=== PATIENT | female | born 1945 | race Caucasian/White ===

== ENCOUNTER 2019-08-11 09:47 | Day surgery (SDC) ==
--- NOTE | 2019-08-05 08:18 | EKG Report ---
Test Performed on : 08/05/2019 07:58:07 AM Test Reason : PAT Blood Pressure : / mmHG Vent. Rate : 098 BPM Atrial Rate : 098 BPM P-R Int : 182 ms QRS Dur : 088 ms QT Int : 378 ms P-R-T Axes : 063 066 072 degrees QTc Int : 482 ms Normal sinus rhythm. Possible Left atrial enlargement Borderline ECG When compared with ECG of 11-JUL-2010 23:09, No significant change was found Confirmed by Bernardino GIBBONS, Rg Britton ([id number]) on 08/06/2019 8:58:44 AM
[2019-08-05 08:26] LABS: URINE SOURCE CLEAN CATCH
[2019-08-05 08:43] LABS: BASO# 0.05 X1000 (0.0-0.2); BASO% 0.9 % (0.0-0.8); EOS# 0.46 X1000 (0.0-0.7); EOS% 8.4 % (0.0-10.0); HEMATOCRIT 42.8 % (37.0-47.0); HEMOGLOBIN 13.9 g/dL (12.0-16.0); LYMPH# 1.04 X1000 (1.2-3.4); LYMPH% 18.9 % (20.5-51.1); MCH 30.5 PG (27-31); MCHC 32.5 g/dL (33-37); MCV 94.1 FL (81-99); MONO# 0.85 X1000 (0.11-0.59); MONO% 15.5 % (1.7-9.3); NEUT% 56.3 % (42.2-75.2); PLT 177 X1000 (130-400); RBC 4.55 XMIL (4.2-5.4); RDW 13.5 % (11.5-14.5)
[2019-08-05 08:44] LABS: BILIRUBIN URINE NEGATIVE (NEGATIVE); BLOOD URINE NEGATIVE (NEGATIVE); COLOR YELLOW; GLUCOSE URINE NEGATIVE (NEGATIVE); KETONE URINE NEGATIVE (NEGATIVE); LEUKOCYTES URINE TRACE (NEGATIVE); NITRITE URINE NEGATIVE (NEGATIVE); PROTEIN URINE NEGATIVE (NEGATIVE); SP GRAVITY URINE 1.015; TURBIDITY URINE CLEAR (CLEAR); UROBILINOGEN URINE NORMAL (NORMAL)
[2019-08-05 08:45] LABS: UR EPITHELIAL CELLS <10 /HPF (<10); URINE BACTERIA NEGATIVE /HPF; URINE RBC <10 /HPF (<10); URINE WBC <10 /HPF (<10)
[2019-08-05 08:49] LABS: PROTIME 13.3 Seconds (11.0-16.0); PTT 26.1 Seconds (22.3-41.8)
[2019-08-05 09:03] LABS: AGAP 13; BUN 19 mg/dL (8-22); CALCIUM 9.2 mg/dL (8.8-10.2); CHLORIDE 101 mmol/L (98-107); COSMO 280; CREATININE 0.7 mg/dL (0.5-0.9); ESTIMATED GFR > 60; GLUCOSE 77 mg/dL (70-104); POTASSIUM 4.2 mmol/L (3.5-5.1); SODIUM 140 mmol/L (136-145); TCO2 26 mmol/L (25-35)
[~2019-08-11 09:47] MED LIST: FENTANYL ONE; VERSED ONE
[2019-08-11] MEDS ORDERED: PEPCID ONE (09:57)
[2019-08-11] MEDS ORDERED: COLACE ONE (09:57)
[2019-08-11] MEDS ORDERED: REGLAN ONE (09:57)
[2019-08-11] MEDS ORDERED: CELEBREX ONE (09:58)
[2019-08-11] MEDS ORDERED: LR 1,000 ML ONE (09:58)
[2019-08-11] MEDS ORDERED: LYRICA ONE ×2 (09:58→09:59)
[2019-08-11] MEDS ORDERED: KEFZOL 1 GM/D5W 1 GM/50 ML IVPB ONE (10:00)
[2019-08-11] MEDS ORDERED: COREG ONE (10:06)
[2019-08-11] MEDS ORDERED: MARCAINE 0.25% PF ONE (11:12)
[2019-08-11] MEDS ORDERED: TORADOL ONE (11:12)
[2019-08-11] MEDS ORDERED: VANCOMYCIN ONE (11:12)
[2019-08-11] MEDS ORDERED: SODIUM CHLORIDE 0.9% ONE (11:12)
[2019-08-11] MEDS ORDERED: CYKLOKAPRON 1,000 MG/NS 1,000 MG/100 ML IVPB ONE ×2 (11:12→11:13)
[2019-08-11] MEDS ORDERED: DURAMORPH ONE (11:12)
[2019-08-11] MEDS ORDERED: EXPAREL 1.3% ONE (11:13)
[2019-08-11 12:23] LABS: URINE SOURCE CATH
[2019-08-11] MEDS ORDERED: ZOFRAN ONE (12:26)
[2019-08-11] MEDS ORDERED: OFIRMEV 1000 MG/ISOTONIC SOLN 1,000 MG/100 ML BOTTLE ONE (12:26)
[2019-08-11] MEDS ORDERED: DECADRON ONE (12:26)
[2019-08-11 12:28] LABS: BILIRUBIN URINE NEGATIVE (NEGATIVE); BLOOD URINE NEGATIVE (NEGATIVE); COLOR YELLOW; GLUCOSE URINE NEGATIVE (NEGATIVE); KETONE URINE NEGATIVE (NEGATIVE); LEUKOCYTES URINE NEGATIVE (NEGATIVE); NITRITE URINE NEGATIVE (NEGATIVE); PH URINE 7.5; PROTEIN URINE NEGATIVE (NEGATIVE); SP GRAVITY URINE 1.018; TURBIDITY URINE CLEAR (CLEAR); UR EPITHELIAL CELLS <10 /HPF (<10); URINE BACTERIA NEGATIVE /HPF; URINE RBC <10 /HPF (<10); URINE WBC <10 /HPF (<10); UROBILINOGEN URINE NORMAL (NORMAL)
--- NOTE | 2019-08-11 13:15 | OPERATIVE NOTE ---
PROCEDURE DATE: 08/11/2019 PREOPERATIVE DIAGNOSIS: Degenerative joint disease, right knee. POSTOPERATIVE DIAGNOSIS: Degenerative joint disease, right knee. PROCEDURE PERFORMED: Right total knee replacement. SURGEON: Nitin Kebede M.D. APPLICATIONS SCIENTIST: VIRGINIE Florence. Mr. Corcoran was necessary for proper retraction and manipulation of the leg during the case. ANESTHESIA: Spinal. COMPLICATIONS: None. PROCEDURE IN DETAIL: This 73-year-old female presents for right total knee replacement. Risks, benefits, and no guarantees were discussed, and she is willing to proceed. She was taken to the operating room, and satisfactory anesthesia obtained. The right leg was prepped and draped in the usual sterile fashion. A time-out was taken to confirm operative site, procedure, and patient. The leg was wrapped with an Esmarch, and tourniquet inflated to 300 mmHg. A midline incision was made over the front of the knee, followed by a quad tendon-sparing arthrotomy. The patella was everted with freehand technique, and shaved and subluxed laterally. The knee was flexed, an intramedullary hole placed in the distal femur, and the distal femoral cutting block secured in 5 degrees of valgus. Distal femoral resection was made, and the femur sized to a GroovinAdsuy size 5 femoral component. The 4-in-1 block was secured, and the anterior, posterior, and chamfer cuts sequentially made. Any remaining osteophytes were debrided from the femur. The knee was flexed, and a PCL retractor placed behind the tibial plateau to protect the PCL and neurovascular bundle. The tibial cutting block was secured, and the tibial resection made. Flexion and extension gaps were equal with a 5 mm spacer. Tibia was sized to a size 5 tibial tray. The patella was sized to a 35 medialized dome patella. The drill holes were placed for the patellar implant and femoral implant, and the trial components were removed. The bony surfaces were thoroughly irrigated with pulsatile lavage. Cement with a gram of vancomycin was utilized to cement a rotating platform size 5 Attune tibial tray. A size 5 narrow right cruciate retaining femoral component and a 35 medialized dome patella were cemented onto the knee. Excess cement was removed with a Crandall elevator. While the cement cured, the joint capsule was injected with Exparel for pain management, and a Hemovac drain placed. After curing the cement, a size 5, 5 mm thick rotating platform CR poly was placed in the tibial tray, and the knee reduced. Final range of motion was 0 to 135 degrees with midline patellar tracking. The arthrotomy was copiously irrigated with irrigant. It was closed over the drain with #1 Vicryl in the arthrotomy, 2-0 Vicryl in the subcu, and Dermabond-type skin closure. Sterile dressings were applied, and tourniquet released with good return of capillary blood flow. She was recovered from anesthesia, and transferred to the recovery room in stable condition. No intraoperative complications were noted. Instrument count and sponge count were correct at the time of closure. cc: Joel Kebede MD
[2019-08-11] MEDS ORDERED: NS 1,000 ML ONE (13:54)
--- NOTE | 2019-08-11 14:03 | Diag Imaging Result Doc PS360 ---
EXAM: KNEE 1-2 VIEWS-RIGHT 08/11/2019 HISTORY: RTKA TECHNIQUE: Two views COMMENT: There is a total knee arthroplasty. There is no evidence of acute bony abnormality otherwise. IMPRESSION: Postsurgical changes. Electronically signed by Camilo Guidry 08/11/2019 2:01 PM
--- NOTE | 2019-08-11 14:49 | ORTHOPAEDICS PROGRESS NOTE ---
DATE: 08/11/2019 Ms. Sylvester is seen status post total knee replacement. At the present time, she is awake and comfortable. Vital signs are stable. Her bandage is clean and dry. She appears to be motor and sensory intact. Will continue to monitor and mobilize her. Will consider discharge home when she is mobilizing independently. cc: Joel Kebede MD
[2019-08-11] MEDS ORDERED: AMBIEN PO PRN (14:57)
[2019-08-11] MEDS ORDERED: OXY IR PO PRN ×2 (15:30)
[2019-08-11] MEDS ORDERED: ZOFRAN ODT PO PRN (15:30)
[2019-08-11] MEDS ORDERED: ZOFRAN IV PRN (15:30)
[2019-08-11] MEDS ORDERED: PNEUMOVAX 23 IM ONE (15:30)
[2019-08-11] MEDS ORDERED: MORPHINE IV PRN ×3 (15:30)
[2019-08-11] MEDS: ULTRAM PO SCH ×2 (15:55→20:59)
[2019-08-11] MEDS: XANAX PO SCH ×2 (15:55→20:46)
[2019-08-11] MEDS: NS 1,000 ML IV SCH ×2 (16:01→20:48)
[2019-08-11] MEDS: TYLENOL PO SCH (18:09)
[2019-08-11] MEDS: PERIDEX MT SCH (20:42)
[2019-08-11] MEDS: CELEBREX PO SCH (20:46)
[2019-08-11] MEDS: COLACE PO SCH (20:47)
[2019-08-11] MEDS: COREG PO SCH (20:47)
[2019-08-11] MEDS: WELLBUTRIN PO SCH (20:47)
[2019-08-11] MEDS: KEFZOL 1 GM/D5W 1 GM/50 ML IVPB IV SCH (20:48)
[2019-08-11] MEDS ORDERED: CRESTOR PO SCH (21:00)
--- NOTE | 2019-08-11 22:12 | CONSULTATION ---
DATE OF CONSULTATION: 08/11/2019 REQUESTING PHYSICIAN: Joel Kebede MD INDICATION: Medical management of underlying coronary artery disease, hyperlipidemia, and hypertension. HISTORY OF PRESENT ILLNESS: A 73-year-old white female with a complicated past medical history presents in consultation for above-mentioned condition. Current history of present illness began this morning. The patient was admitted for elective right total knee arthroplasty. This was performed by Dr. Kebede. Per report, no complications were noted. Throughout the day, patient's postoperative course was uncomplicated. This evening, upon my arrival, patient was sitting upright in bed. Her pain was controlled. She denied fevers, chills, nausea, vomiting, shortness of breath, or chest discomfort. She is prepared for physical therapy to begin in the morning. PAST MEDICAL HISTORY: 1. History of aortic valve replacement and tricuspid valve repair in 2014. 2. History of appendicitis status post appendectomy in 1957. 3. History of left breast cancer in 1986 status post mastectomy and subsequent reconstruction. 4. Coronary artery disease status post coronary artery bypass grafting in 2014. 5. Depression/anxiety. 6. Hyperlipidemia. 7. Hypertension. 8. Impaired fasting glucose. 9. Iron deficiency. 10. History of benign colon polyps. 11. Mild memory impairment. 12. Osteoarthritis. 13. Insomnia. 14. Mild chronic obstructive pulmonary disease. 15. History of a superficial basal cell carcinoma. 16. Subclavian arterial stenosis with subclavian steal. 17. Thrombocytopenia. 18. History of a moderate left vertebral artery stenosis. 19. Vertigo. CURRENT MEDICATIONS: 1. Alprazolam 0.5 mg 3 times daily. 2. Aspirin 325 mg daily. 3. Bupropion ER 150 mg twice daily. 4. Calcium plus vitamin D daily. 5. Claritin 10 mg daily. 6. Colace 100 mg twice daily as needed. 7. Coenzyme Q10 100 mg daily. 8. Coreg 6.25 mg twice daily. 9. Crestor 40 mg daily. 10. Lexapro 5 mg daily. 11. Fish oil 1000 mg twice daily. 12. Micardis HCT 80/12.5 daily. 13. Vitamin B12 1000 mcg daily. 14. Ambien 10 mg 1/2 to 1 tablet at bedtime as needed. ALLERGIES: The patient answered no known drug allergies. SOCIAL HISTORY: Patient denies tobacco, alcohol or illicit drug use. She is retired. She enjoys reading, watching television, painting, and gardening. FAMILY HISTORY: Patient's father passed at age 91 secondary to complications of "old age." He had a history of diabetes, hypertension, hyperlipidemia, and multiple cancers including colon/liver/prostate. The patient's mother passed at age 76 secondary to complications of a stroke. She had a history of severe mental illness and breast cancer. REVIEW OF SYSTEMS: A 12-point review of systems was performed. Pertinent positives and negatives were noted in history of present illness. PHYSICAL EXAMINATION: Vital Signs: Temperature 97.7 degrees, heart rate 103, respirations 14, blood pressure is 116/68. General: Well nourished, well developed, in no acute distress. Cardiovascular: Regular rate and rhythm. No significant murmurs, rubs, or gallops. Pulmonary: Clear to auscultation bilaterally. Abdomen: Soft, nontender, nondistended. Positive bowel sounds. Extremities: No significant clubbing, cyanosis, or edema. Right knee is dressed post surgically. Dermatologic: Evaluation reveals no evidence of rash. LABORATORY DATA: None. ASSESSMENT AND PLAN: A 73-year-old white female presents in consultation for medical management of multiple chronic conditions in the postoperative period. 1. Thank you for allowing me to participate in the care of Ms. Sylvester. 2. Right knee osteoarthritis--Patient is status post right total knee arthroplasty by Dr. Kebede. Thus far, patient has tolerated this well. Postoperative management will be deferred to his discretion. 3. Coronary artery disease--Patient has longstanding disease. As above, she is status post coronary artery bypass grafting in 2015. At present time, she is asymptomatic. We will continue her optimized her home medical regimen with exception of blood pressure adjustments as described below. 4. Valvular heart disease--As above, patient is status post aortic valve replacement and tricuspid valve repair in 2015. She has no evidence of failure. We will remain aware. 5. Depression--Patient appears to be in good spirits at present time. We will continue her current regimen including Lexapro, Wellbutrin and Xanax therapy. 6. Hyperlipidemia--We will continue patient on rosuvastatin therapy. 7. Hypertension--Patient's postoperative blood pressure is controlled. I am concerned that if we continue her current regimen, we likely will see an episode of hypotension. We will decrease patient's telmisartan to 40 mg daily. We will hold hydrochlorothiazide. We will continue Coreg for now. We will continue to monitor patient's blood pressure closely while hospitalized. 8. Impaired fasting glucose--We will remain aware. 9. Insomnia--We will continue patient on as-needed Ambien therapy. 10. Right subclavian steal syndrome--We will remain aware. We will ask blood pressures to be drawn on the left side. 11. Thrombocytopenia--Patient has longstanding, modest disease. Platelet count prior to surgery was 177,000. We will remain aware. 12. Disposition--At this point, patient continues to require senior care care in a hospital setting. We will follow along and adjust medical management as necessary. cc: MD Joel Brooks MD
[2019-08-12] MEDS: TYLENOL PO SCH ×2 (03:48→12:50)
[2019-08-12] MEDS: ULTRAM PO SCH ×2 (03:49→12:49)
[2019-08-12] MEDS: KEFZOL 1 GM/D5W 1 GM/50 ML IVPB IV SCH (03:49)
[2019-08-12] MEDS: NS 1,000 ML IV SCH (05:30)
[2019-08-12 07:17] LABS: HEMATOCRIT 38.8 % (37.0-47.0); HEMOGLOBIN 12.4 g/dL (12.0-16.0)
--- NOTE | 2019-08-12 07:28 | ORTHOPAEDICS PROGRESS NOTE ---
DATE: 08/12/2019 Ms. Sylvester is seen status post total knee replacement. Presently, she is doing relatively well. Pain is well managed. She is afebrile. Her blood pressure and vital signs look relatively stable. We will plan on discontinuing all her lines today and mobilizing her. She can be discharged home today if okay with her medical doctor, Dr. Cho. We will set up home therapy initially and recheck her in roughly 10 to 12 days. She can be discharged with her regular home medicine as well as Brillion 10 for pain, doxycycline for wound prophylaxis, and aspirin 325 a day for DVT prophylaxis. cc: Joel Kebede MD
[2019-08-12 07:52] LABS: AGAP 14; BUN 19 mg/dL (8-22); CALCIUM 8.3 mg/dL (8.8-10.2); CHLORIDE 102 mmol/L (98-107); COSMO 276; CREATININE 0.7 mg/dL (0.5-0.9); ESTIMATED GFR > 60; GLUCOSE 138 mg/dL (70-104); POTASSIUM 4.6 mmol/L (3.5-5.1); SODIUM 136 mmol/L (136-145); TCO2 20 mmol/L (25-35)
[2019-08-12] MEDS: CELEBREX PO SCH (08:27)
[2019-08-12] MEDS: WELLBUTRIN PO SCH (08:27)
[2019-08-12] MEDS: COLACE PO SCH (08:29)
[2019-08-12] MEDS: COREG PO SCH (08:29)
[2019-08-12] MEDS: XANAX PO SCH (08:31)
[2019-08-12] MEDS: PERIDEX MT SCH (08:31)
[2019-08-12] MEDS ORDERED: VITAMIN B-12 PO SCH (09:00)
[2019-08-12] MEDS ORDERED: PEPCID PO SCH (09:00)
[2019-08-12] MEDS ORDERED: HYDROCHLOROTHIAZIDE PO SCH (09:00)
[2019-08-12] MEDS ORDERED: CLARITIN-D 24 HR PO SCH (09:00)
[2019-08-12] MEDS ORDERED: CALTRATE 600 + D PO SCH (09:00)
[2019-08-12] MEDS ORDERED: FISH OIL CONCENTRATE PO SCH ×2 (09:00)
[2019-08-12] MEDS ORDERED: MICARDIS PO SCH ×2 (09:00)
[2019-08-12] MEDS ORDERED: COENZYME Q10 PO SCH (09:00)
[2019-08-12] MEDS ORDERED: LEXAPRO PO SCH (09:00)
[2019-08-12] MEDS ORDERED: ASPIRIN PO SCH ×2 (09:00)
[2019-08-12] MEDS ORDERED: CLARITIN PO SCH (09:00)
[2019-08-12 12:27] VITALS: BP 110/59
--- NOTE | 2019-08-12 23:26 | PROGRESS NOTE ---
DATE: 08/12/2019 SUBJECTIVE: Upon my arrival this morning, the patient was sitting upright in bed. Overall, the patient stated she felt reasonably well. Through the day, the patient worked with physical therapy. Per report, this physical therapy was successful. Pain remains controlled. She denies fevers, chills, nausea, vomiting, shortness of breath or chest discomfort. OBJECTIVE: T-max 98.1 degrees, heart rate 89 to 102, respirations 16 to 18. Blood pressure 108 to 145 over 66 to 84.General: Well nourished, well developed, no acute distress. Cardiovascular: Regular rate and rhythm. No significant murmurs, rubs or gallops. Pulmonary: Clear to auscultation bilaterally. Abdomen: Soft, nontender, nondistended. Positive bowel sounds. Extremities: Moves all extremities well. No significant clubbing, cyanosis or edema. Right lower extremity with limited range of motion secondary to pain. Dermatologic: Evaluation reveals a dressed right total knee arthroplasty. LABORATORY DATA: Hemoglobin 12.4, hematocrit 38.8, sodium 136, potassium 4.6, chloride 102, bicarbonate 20, BUN 19, creatinine 0.9, glucose 138, calcium 8.3. ASSESSMENT AND PLAN: 1. Right knee osteoarthritis: The patient is postoperative day #1, right total knee arthroplasty. The patient tolerated this procedure quite well. We will defer postoperative management to Dr. Kebede. The patient will likely require physical therapy as an outpatient. Anticoagulation will be per Dr. Kebede's discretion. 2. Coronary artery disease: The patient has longstanding disease. She is currently asymptomatic. We will continue her optimized medical management. 3. Valvular heart disease: Once again, the patient is asymptomatic. She is euvolemic on examination today. We will continue her medical regimen. 4. Depression: The patient's symptoms are well controlled with Lexapro, Wellbutrin and Xanax therapy. We will continue each of these. 5. Hyperlipidemia: We will continue the patient on rosuvastatin therapy. 6. Hypertension: At home, the patient is treated with telmisartan/hydrochlorothiazide 80/12.5. The patient was decreased to 40 mg of telmisartan while hospitalized. Hydrochlorothiazide was held. I have asked the patient to keep a log of her blood pressure. She has to hold her telmisartan/hydrochlorothiazide for systolic blood pressure less than 140. Once she is consistently above 140, she will resume this medication. We will continue the patient on Coreg therapy. 7. Impaired fasting glucose: We will continue to encourage a low-carbohydrate, low-sugar diet as an outpatient. 8. Insomnia: We will continue the patient on as-needed Ambien therapy. 9. Right subclavian steal syndrome: The patient remains asymptomatic. 10. Thrombocytopenia: The patient's platelet count upon admission was 177,000. She has no evidence of spontaneous bleeding. 11. Disposition: From a medical standpoint, it is acceptable for the patient to be discharged home. As above, management of hypertension has been discussed in detail with the patient. Postoperative instructions are per Dr. Kebede. cc: MD Joel Brooks MD
== END 2019-08-12 14:18 | disposition home health service (06) ==
LOC: OR 09:47 → 4N 09:47 → OR 08-12 14:18
PROVIDERS: ATTEND Orthopaedic Surgery Adult Reconstructive Orthopaedic Surgery